=== PATIENT | male | born 1980 | race Caucasian/White ===

== ENCOUNTER 2021-01-02 02:25 | Emergency (ER) | payer BC ==
[~2021-01-02] VITALS: Ht 177.8 cm; Wt 135.2 kg
[2021-01-02] MEDS ORDERED: ARMOUR THYROID15 M1 PO (02:33)
[2021-01-02 03:25] VITALS: BP 142/94
== END 2021-01-02 03:26 | disposition home or self-care (01) ==
LOC: M.ERS 02:25
DX: I10 Essential (primary) hypertension (principal); E89.0 Postprocedural hypothyroidism; Z88.2 Allergy status to sulfonamides